=== PATIENT | female | born 1955 | race Caucasian/White ===

== ENCOUNTER → 2017-07-17 | Outpatient (CLI) | payer BC ==
--- NOTE | 2017-07-17 12:25 | EST ---
EXERCISE STRESS DATE OF SERVICE: 07/17/2017 AGE: 61 SEX: Female HT: 66 WT: 200 PROTOCOL: Abram STAGE: II DURATION OF EXERCISE: 5 minutes HEART RATE REST: 96 BLOOD PRESSURE REST: 149/86 MAXIMUM HEART RATE ACHIEVED: 166 MAXIMUM BLOOD PRESSURE: 176/81 85% MPHR: 137 100% MPHR: 161 METS: 6 INDICATION: Dyspnea on exertion. CLINICAL INFORMATION: Baseline EKG shows sinus rhythm, nonspecific ST-T wave changes. Patient exercised on Abram protocol for a total of 5 minutes achieving 6 METs, 100% of predicted maximal heart rate without chest pain or diagnostic ST-segment depression. CONCLUSIONS: 1. Average exercise tolerance. 2. Inconclusive EKG part of the stress test due to baseline EKG abnormalities. 3. Cardiolite portion of the stress test will be reported separately. MMODL / IJN: [id number] /
== END | disposition home or self-care (01) ==
LOC: RADNMMAIN 11:12
PROVIDERS: ATTEND Family Medicine
DX: R94.31 Abnormal electrocardiogram [ECG] [EKG] (principal); R06.02 Shortness of breath
CPT/HCPCS: 93017

== ENCOUNTER → 2017-12-21 | Outpatient (CLI) | payer BC ==
--- NOTE | 2017-12-24 13:15 | MM ---
Reason for exam: screening (asymptomatic). Last mammogram was performed 1 year and 3 months ago. History: Patient is postmenopausal. Family history of breast cancer in paternal cousin. Cancelled Right Mammotome of the right breast, June 15, 2006. Cancelled Procedure of the right breast, June 15, 2006. Benign right breast needle localzation of the right breast, 2005. Physical Findings: A clinical breast exam by your physician is recommended on an annual basis and results should be correlated with mammographic findings. MG 3D Screening Mammo W/Cad Bilateral CC and MLO view(s) were taken. Prior study comparison: September 21, 2016, bilateral MG 3d screening mammo w/cad. September 20, 2015, bilateral MG 3d screening mammo w/cad. The breast tissue is heterogeneously dense. This may lower the sensitivity of mammography. No suspicious abnormality. Post surgical change on the right breast. No significant changes when compared with prior studies. ASSESSMENT: Benign, BI-RAD 2 RECOMMENDATION: Routine screening mammogram of both breasts in 1 year.
== END | disposition home or self-care (01) ==
LOC: RADMAMWWP 07:21
PROVIDERS: ATTEND Obstetrics & Gynecology
DX: Z12.31 Encounter for screening mammogram for malignant neoplasm of breast (principal); Z80.3 Family history of malignant neoplasm of breast
CPT/HCPCS: 77063; 77067

== ENCOUNTER → 2018-12-23 | Outpatient (CLI) | payer BC ==
--- NOTE | 2018-12-24 13:16 | MM ---
Reason for exam: screening (asymptomatic). Last mammogram was performed 1 year ago. History: Patient is postmenopausal. Family history of breast cancer in paternal cousin. Cancelled Right Mammotome of the right breast, June 15, 2006. Cancelled Procedure of the right breast, June 15, 2006. Benign right breast needle localzation of the right breast, 2005. Physical Findings: A clinical breast exam by your physician is recommended on an annual basis and results should be correlated with mammographic findings. MG 3D Screening Mammo W/Cad Bilateral CC and MLO view(s) were taken. Prior study comparison: December 21, 2017, bilateral MG 3d screening mammo w/cad. September 21, 2016, bilateral MG 3d screening mammo w/cad. The breast tissue is heterogeneously dense. This may lower the sensitivity of mammography. No suspicious abnormality. Post surgical change on the right. No significant changes when compared with prior studies. ASSESSMENT: Benign, BI-RAD 2 RECOMMENDATION: Routine screening mammogram of both breasts in 1 year.
== END | disposition home or self-care (01) ==
LOC: RADMAMWWP 07:32
PROVIDERS: ATTEND Obstetrics & Gynecology
DX: Z12.31 Encounter for screening mammogram for malignant neoplasm of breast (principal)
CPT/HCPCS: 77063; 77067

== ENCOUNTER → 2020-03-17 | Outpatient (CLI) | payer BC ==
--- NOTE | 2020-03-18 09:12 | MM ---
Reason for exam: screening (asymptomatic). Last mammogram was performed 1 year and 3 months ago. History: Patient is postmenopausal. Family history of breast cancer in paternal cousin. Cancelled Right Mammotome of the right breast, June 15, 2006. Cancelled Procedure of the right breast, June 15, 2006. Benign right breast needle localzation of the right breast, 2005. Physical Findings: A clinical breast exam by your physician is recommended on an annual basis and results should be correlated with mammographic findings. MG 3D Screening Mammo W/Cad Bilateral CC and MLO view(s) were taken. Prior study comparison: December 23, 2018, bilateral MG 3d screening mammo w/cad. December 21, 2017, bilateral MG 3d screening mammo w/cad. The breast tissue is heterogeneously dense. This may lower the sensitivity of mammography. Post surgical changes in the right breast upper MLO. No significant changes when compared with prior studies. ASSESSMENT: Benign, BI-RAD 2 RECOMMENDATION: Routine screening mammogram of both breasts in 1 year.
== END | disposition home or self-care (01) ==
LOC: RADMAMWWP 15:08
PROVIDERS: ATTEND Obstetrics & Gynecology
DX: Z12.31 Encounter for screening mammogram for malignant neoplasm of breast (principal)
CPT/HCPCS: 77063; 77067

== ENCOUNTER → 2021-03-22 | Outpatient (CLI) | payer BC ==
--- NOTE | 2021-03-22 13:04 | BD ---
EXAMINATION TYPE: Axial Bone Density DATE OF EXAM: 03/22/2021 COMPARISON: NONE CLINICAL HISTORY: 65 YR OLD FEMALE.....ICD-10 CODE: Z78.0, N95.1, Z13.82 Height: 65 Weight: 191 FRAX RISK QUESTIONS: NOTHING TO NOTE HERE RISK FACTORS HISTORY OF: Diet low in dairy products/other sources of calcium: YES Postmenopausal woman: YES AT AGE 53 YRS OLD, TOTAL HYST Hyperparathyroidism: NO Adrenal Insufficiency: NO MEDICATIONS: Additional Medications: STATIN FOR CHOLESTEROL, Additional History: CHOLESTEROL EXAM MEASUREMENTS: Bone mineral densitometry was performed using the [email or web address] System. Bone mineral density as measured about the Lumbar spine is: ----- L1-L4(G/cm2): 1.456 T Score Values are as follows: ----- L1: 1.3 ----- L2: 1.6 ----- L3: 2.7 ----- L4: 3.2 ----- L1-L4: 2.3 Bone mineral density FIRST DEXA SCAN...BASELINE STUDY Bone mineral density about the R hip (g/cm2): 1.156 Bone mineral density about the L hip (g/cm2): 1.150 T Score values are as follows: -----R Neck: 0.1 -----L Neck: 0.1 -----R Total: 1.2 -----L Total: 1.1 Bone mineral density BASELINE STUDY FRAX%S: THERE IS 6.2% CHANCE FOR A MAJOR OSTEOPOROTIC FX AND A 0.2% FOR HIP.....PROBABILITY FOR FX IN 10 YRS TIME IMPRESSION: Normal bone mineral density. NOTE: T-SCORE=SD OF THE YOUNG ADULT MEAN.
== END | disposition home or self-care (01) ==
LOC: RADBDWWP 11:04
PROVIDERS: ATTEND Obstetrics & Gynecology
DX: Z13.820 Encounter for screening for osteoporosis (principal); Z78.0 Asymptomatic menopausal state; N95.1 Menopausal and female climacteric states
CPT/HCPCS: 77080

== ENCOUNTER → 2021-03-23 | Outpatient (CLI) | payer BC ==
--- NOTE | 2021-03-25 11:29 | MM ---
Reason for exam: screening (asymptomatic). Last mammogram was performed 1 year ago. History: Patient is postmenopausal. Family history of breast cancer in paternal cousin. Cancelled Right Mammotome of the right breast, June 15, 2006. Cancelled Procedure of the right breast, June 15, 2006. Benign right breast needle localzation of the right breast, 2005. Physical Findings: A clinical breast exam by your physician is recommended on an annual basis and results should be correlated with mammographic findings. MG 3D Screening Mammo W/Cad Bilateral CC and MLO view(s) were taken. Prior study comparison: March 17, 2020, bilateral MG 3d screening mammo w/cad. December 23, 2018, bilateral MG 3d screening mammo w/cad. There are scattered fibroglandular densities. ASSESSMENT: Negative, BI-RAD 1 RECOMMENDATION: Routine screening mammogram of both breasts in 1 year.
== END | disposition home or self-care (01) ==
LOC: RADMAMWWP 09:09
PROVIDERS: ATTEND Obstetrics & Gynecology
DX: Z12.31 Encounter for screening mammogram for malignant neoplasm of breast (principal); Z78.0 Asymptomatic menopausal state; Z80.3 Family history of malignant neoplasm of breast
CPT/HCPCS: 77063; 77067

== ENCOUNTER → 2022-06-13 | Outpatient (CLI) | payer BC ==
--- NOTE | 2022-06-13 10:07 | MM ---
Reason for Exam: Screening (asymptomatic). Last mammogram was performed 1 year(s) and 3 month(s) ago. Patient History: Menarche at age 14. First Full-Term at age 27. Left ovary removed at age 54. Right ovary removed at age 54. Hysterectomy at age 54. Postmenopausal. 2005, Benign Excisional Biopsy on the right side. 06/15/2006, Cancelled Procedure on the right side. 06/15/2006, Cancelled Right Mammotome on the right side. Paternal cousin had breast cancer. Risk Values: Radha 5 year model risk: 2.1%. NCI Lifetime model risk: 8.4%. Prior Study Comparison: 12/23/2018 Bilateral Screening Mammogram, [facility]. 03/17/2020 Bilateral Screening Mammogram, [facility]. 03/23/2021 Bilateral Screening Mammogram, [facility]. Tissue Density: The breast tissue is heterogeneously dense. This may lower the sensitivity of mammography. Findings: Analyzed By CAD. There is distortion in the upper-outer aspect right breast which is stable. No suspicious groups of microcalcifications, spiculated or lobular masses, architectural distortion or other secondary signs of malignancy are mammographically apparent. Overall Assessment: Benign, BI-RAD 2 Management: Screening Mammogram of both breasts in 1 year. A negative mammogram report should not preclude additional follow up of suspicious palpable abnormalities. Patient should continue monthly self breast exam. A clinical breast exam by your physician is recommended on an annual basis and results should be correlated with mammographic findings. Electronically signed and approved by: Syed Kee D.O. Radiologis
== END | disposition home or self-care (01) ==
LOC: RADMAMWWP 07:07
PROVIDERS: ATTEND Family Medicine
DX: Z12.31 Encounter for screening mammogram for malignant neoplasm of breast (principal); Z78.0 Asymptomatic menopausal state; Z80.3 Family history of malignant neoplasm of breast; Z98.890 Other specified postprocedural states
CPT/HCPCS: 77063; 77067

== ENCOUNTER → 2023-06-18 | Outpatient (CLI) | payer BC ==
--- NOTE | 2023-06-18 11:07 | BD ---
EXAMINATION TYPE: Axial Bone Density DATE OF EXAM: 06/18/2023 CLINICAL HISTORY: 67 years old Female. ICD-10 CODE: Z13.820SCREENING FOR OSTEOPOROSIS Height: 65 in Weight: 214 lbs FRAX RISK QUESTIONS: History of Fracture in Adulthood: lt ankle age 44 RISK FACTORS HISTORY OF: Active: yes Diet low in dairy products/other sources of calcium: yes Postmenopausal woman: total hysterectomy age 54 MEDICATIONS: Additional Medications: cholesterol meds, EXAM MEASUREMENTS: Bone mineral densitometry was performed using the [employer] System. Bone mineral density as measured about the Lumbar spine is: ----- L1-L4(G/cm2): 1.279 T Score Values are as follows: ----- L1: -0.3 ----- L2: 0.3 ----- L3: 1.4 ----- L4: 1.7 ----- L1-L4: 0.8 Z Score Values are as follows: ----- L1: 0.2 ----- L2: 0.8 ----- L3: 1.9 ----- L4: 2.2 ----- L1-L4: 1.3 Bone mineral density has: Decreased -12.2% since study of: 03/22/2021 Bone mineral density about the R hip (g/cm2): 1.158 Bone mineral density about the L hip (g/cm2): 1.127 T Score values are as follows: -----R Neck: 0.1 -----L Neck: 0.3 -----R Total: 1.2 -----L Total: 0.9 Z Score values are as follows: -----R Neck: 0.9 -----L Neck: 1.0 -----R Total: 1.7 -----L Total: 1.4 Bone mineral density has: Decreased -0.9% since study of: 03/22/2021 FRAX%s: The graph provided illustrates a 10.1% chance for a major osteoporotic fx and a 0.3% chance f or the hips probability for fx in 10 years time. IMPRESSION: Normal (Values between +1 and -1 indicate normal bone mass). Consider repeating this study in 5 year s or sooner if there is some new clinical indication. NOTE: T-SCORE=SD OF THE YOUNG ADULT MEAN.
--- NOTE | 2023-06-19 09:44 | MM ---
Reason for Exam: Screening (asymptomatic). Last screening mammogram was performed 12 month(s) ago. Patient History: Menarche at age 14. First Full-Term at age 27. Left ovary removed at age 54. Right ovary removed at age 54. Hysterectomy at age 54. Postmenopausal. 2005, Benign Excisional Biopsy on the right side. 06/15/2006, Cancelled Procedure on the right side. 06/15/2006, Cancelled Right Mammotome on the right side. Paternal cousin had breast cancer, age 55. Risk Values: Radha 5 year model risk: 2.2%. NCI Lifetime model risk: 8.2%. Prior Study Comparison: 03/17/2020 Bilateral Screening Mammogram, [facility]. 03/23/2021 Bilateral Screening Mammogram, [facility]. 06/13/2022 Bilateral MG 3D screening mammo w/cad, [facility]. Tissue Density: The breast tissue is heterogeneously dense. This may lower the sensitivity of mammography. Findings: Analyzed By CAD. There is no suspicious group of microcalcifications or new suspicious mass in either breast. Overall Assessment: Benign, BI-RAD 2 Management: Screening Mammogram of both breasts in 1 year. . Patient should continue monthly self-breast exams. A clinical breast exam by your physician is recommended on an annual basis. This exam should not preclude additional follow-up of suspicious palpable abnormalities. Note on Radha scores and lifetime risk: 1. A Radha score greater than 3% is considered moderate risk. If this is the case, consider specialist referral to assess eligibility for a risk reducing agent. 2. If overall lifetime risk for the development of breast cancer is 20% or higher, the patient may qualify for future screening with alternating mammogram and breast MRI. Electronically signed and approved by: Viktor Huntley M.D. Radiologis
== END | disposition home or self-care (01) ==
LOC: RADMAMWWP 07:19
PROVIDERS: ATTEND Family Medicine
DX: Z12.31 Encounter for screening mammogram for malignant neoplasm of breast (principal); Z13.820 Encounter for screening for osteoporosis; Z78.0 Asymptomatic menopausal state; Z80.3 Family history of malignant neoplasm of breast
CPT/HCPCS: 77063; 77067; 77080

== ENCOUNTER → 2024-06-23 | Outpatient (CLI) | payer BC ==
--- NOTE | 2024-06-23 08:33 | MM ---
Reason for Exam: Screening (asymptomatic). Last screening mammogram was performed 12 month(s) ago. Patient History: Menarche at age 14. First Full-Term at age 27. Left ovary removed at age 54. Right ovary removed at age 54. Hysterectomy at age 54. Postmenopausal. 2005, Benign Excisional Biopsy on the right side. 06/15/2006, Cancelled Procedure on the right side. 06/15/2006, Cancelled Right Mammotome on the right side. Paternal cousin had breast cancer, age 55. Risk Values: Radha 5 year model risk: 2.2%. NCI Lifetime model risk: 7.9%. Prior Study Comparison: 03/23/2021 Bilateral Screening Mammogram, [facility]. 06/13/2022 Bilateral MG 3D screening mammo w/cad, [facility]. 06/18/2023 Bilateral MG 3D screening mammo w/cad, [facility]. Tissue Density: The breasts are heterogeneously dense, which may obscure small masses. Findings: Analyzed By CAD. Right breast: There is no suspicious group of microcalcifications or new suspicious mass. Left breast: There is no suspicious group of microcalcifications or new suspicious mass. Overall Assessment: Negative, BI-RAD 1 Management: Screening Mammogram of both breasts in [address] [facility] will attempt to contact patient to return for supplemental views and ultrasound if indicated. Patient should continue monthly self-breast exams. A clinical breast exam by your physician is recommended on an annual basis. This exam should not preclude additional follow-up of suspicious palpable abnormalities. Note on Radha scores and lifetime risk: 1. A Radha score greater than 3% is considered moderate risk. If this is the case, consider specialist referral to assess eligibility for a risk reducing agent. 2. If overall lifetime risk for the development of breast cancer is 20% or higher, the patient may qualify for future screening with alternating mammogram and breast MRI. [facility], , 06/23/2024 8:30 AM. Electronically signed and approved by: Tom Tomlin DO
== END | disposition home or self-care (01) ==
LOC: RADMAMWWP 07:27
PROVIDERS: ATTEND Family Medicine
DX: Z12.31 Encounter for screening mammogram for malignant neoplasm of breast
CPT/HCPCS: 77063; 77067